=== PATIENT | male | born 1985 | race Caucasian/White ===

== ENCOUNTER 2019-04-22 16:18 | Emergency (ER) | payer OTHER ==
[~2019-04-22] VITALS: Ht 170.2 cm; Wt 61.2 kg
[2019-04-22 16:32] VITALS: Ht 170.2 cm; Wt 61.2 kg
[2019-04-22 17:59] LABS: microscopic required? NO
[2019-04-22 18:00] LABS: BASOPHIL % 0.1 % (0-2); PLATELET COUNT 213 x10^3mcL (130-400)
[2019-04-22 18:06] LABS: UA SPECIFIC GRAVITY <=1.005 (1.005-1.035); urine erythrocyte NEGATIVE (NEGATIVE)
[2019-04-22 18:13] LABS: CALCIUM 9.5 mg/dL (8.5-10.1); CARBON DIOXIDE 23.4 mmol/L (21-32); CHLORIDE SERUM 101 mmol/L (98-107); CREATININE SERUM 1.2 mg/dL (0.7-1.3); GFR1 > 60 mL/min; GLUCOSE SERUM 105 mg/dL (74-106); POTASSIUM SERUM 4.4 mmol/L (3.5-5.1); SODIUM SERUM 139 mmol/L (136-145)
[2019-04-22 18:20] LABS: AMPHETAMINE QUAL UR NONE DETECTED (See below)
[2019-04-22 18:27] LABS: ALKALINE PHOSPHATASE 83 U/L (46-116); ALT/SGPT 38 U/L (16-63); AMYLASE 83 U/L (25-115); AST/SGOT 32 U/L (15-37); BILIRUBIN TOTAL 0.94 mg/dL (0.20-1.00); CHOLESTEROL 191 mg/dL (<200); LIPASE 81 IU/L (73-393); T4(THYROXINE) 7.2 ug/dL (4.7-13.3)
[2019-04-22 18:37] LABS: ALBUMIN 5.1 g/dL (3.4-5.0); HDL CHOLESTEROL 77 mg/dL (40-60); TOTAL PROTEIN, SERUM 8.3 g/dL (6.4-8.2)
[2019-04-22 20:28] VITALS: BP 118/61
== END 2019-04-22 20:28 | disposition home or self-care (01) ==
LOC: ED 16:18
PROVIDERS: Emergency Medicine
DX: R07.89 Other chest pain (principal); I10 Essential (primary) hypertension; F41.9 Anxiety disorder, unspecified; R01.1 Cardiac murmur, unspecified; Z90.89 Acquired absence of other organs; Z88.2 Allergy status to sulfonamides
CPT/HCPCS: 36415; 83880; G0480